=== PATIENT | female | born 1955 | race African-American/Black ===

== ENCOUNTER → 2018-05-10 | Emergency (ER) | payer MEDICARE, OTHER ==
[~2018-05-10] VITALS: Ht 165.1 cm; Wt 125.2 kg
[~2018-05-10] MED LIST: ACETAMINOPHEN325 M1 PO; ATIVAN1 MG PO; CEFEPIME HCL 2 GM VIAL IV ONE; CLOPIDOGREL75 MG PO; FLUOXETINE HCL20 MG PO; FLUTICASONE PRO16 GM; FUROSEMIDE40 MG PO; LACTULOSE20 GM/30 M PO; LISINOPRIL2.5 MG PO; LORATADINE10 MG PO; METOPROLOL TART25 MG PO; MULTIVITAMIN PO; NAMENDA10 MG PO; OLANZAPINE5 MG PO; PRAVASTATIN SOD20 MG PO; PROVENTIL HFA6.7 GM INH; SODIUM CHLORIDE 0.9% 1000ML 1,000 ML IV STA; SODIUM CHLORIDE 0.9% 1000ML 1,000 ML ONE; TRAZODONE HCL50 MG PO; VANCOMYCIN 1GM/NS 250 ML 250 ML IV ONE; ZOLOFT50 MG PO; ZYPREXA5 MG PO
--- NOTE | 2018-05-10 18:53 | Diagnostic Imaging Report ---
EXAMINATION: CHEST SINGLE (PORTABLE) INDICATION: Altered mental status. \S\AMS \[id number] \S\1821 COMPARISON: 08/24/2016 FINDINGS: AP view TUBES and LINES: None. LUNGS: Limited by body habitus and low lung volumes. Patient's chin obscures extreme apices. Mild to moderate interstitial edema. PLEURA: No significant pleural effusion or pneumothorax. HEART AND MEDIASTINUM: The cardiomediastinal silhouette is enlarged. Aorta is tortuous. BONES AND SOFT TISSUES: No acute osseous lesion. Soft tissues are unremarkable. UPPER ABDOMEN: No free air under the diaphragm. IMPRESSION: Limited as above. Enlarged cardiomediastinal silhouette and mild to moderate interstitial edema. Underlying infiltrate, especially in the right upper lung field cannot be excluded. Signed by: Dr. James Knight MD on 05/10/2018 6:50 PM
[2018-05-10 19:18] LABS: BASOPHILS % 0.3 % (0.0-1.0); EOSINOPHILS # (AUTO) 0.1 (0.0-0.4); EOSINOPHILS % 1.8 % (0.0-6.0); HEMATOCRIT 42.2 % (34.2-44.1); HEMOGLOBIN 13.6 g/dL (12.0-16.0); LYMPHOCYTES # (AUTO) 1.1 (1.0-3.2); LYMPHOCYTES % 31.8 % (18.0-39.1); MEAN CORPUSCULAR HEMOGLOBIN 30.8 pg (28-32); MEAN CORPUSCULAR HGB CONC 32.2 g/dL (31-35); MEAN CORPUSCULAR VOLUME 95.5 fL (81-99); MONOCYTES # (AUTO) 0.3 (0.2-0.8); MONOCYTES % 8.6 % (4.4-11.3); NEUTROPHILS # (AUTO) 1.9 (2.1-6.9); NEUTROPHILS % 57.2 % (38.7-80.0); PLATELET COUNT 73 x10e3/uL (140-360); RED BLOOD COUNT 4.42 x10e6/uL (3.6-5.1); RED CELL DISTRIBUTION WIDTH 14.8 % (11.7-14.4)
[2018-05-10 19:28] LABS: INR 1.19; PROTHROMBIN TIME 14.2 seconds (11.9-14.5)
[2018-05-10 19:29] LABS: PARTIAL THROMBOPLASTIN TIME 39.2 seconds (23.8-35.5)
[2018-05-10 19:36] LABS: ALANINE AMINOTRANSFERASE 42 IU/L (0-55); ALBUMIN 3.4 g/dL (3.5-5.0); ALBUMIN/GLOBULIN RATIO 0.7 (0.8-2.0); ALKALINE PHOSPHATASE 86 IU/L (40-150); ANION GAP 14.7 mmol/L (8-16); BLOOD UREA NITROGEN 25 mg/dL (7-26); BUN/CREATININE RATIO 33 (6-25); CALCIUM 10.2 mg/dL (8.4-10.2); CARBON DIOXIDE 33 mmol/L (22-29); CHLORIDE 102 mmol/L (98-107); CREATINE KINASE 70 IU/L (29-168); CREATININE, SERUM 0.76 mg/dL (0.57-1.11); EST GLOMERULAR FILTRATION RATE > 60 ML/MIN (60-); GLUCOSE 87 mg/dL (74-118); MAGNESIUM 1.8 MG/DL (1.3-2.1); POTASSIUM 3.7 mmol/L (3.5-5.1); SODIUM 146 mmol/L (136-145)
[2018-05-10 19:46] LABS: B-TYPE NATRIURETIC PEPTIDE2 90.5 pg/mL (0-100)
[2018-05-10 19:56] LABS: THYROID STIMULATING HORMONE 9.414 uIU/mL (0.350-4.940)
--- NOTE | 2018-05-10 19:59 | Diagnostic Imaging Report ---
EXAMINATION: Head CT without contrast. HISTORY:Altered mental status. COMPARISON:CT brain from 08/21/2016. TECHNIQUE: Multidetector axial images were obtained from the foramen magnum to the vertex without contrast. The images were reconstructed using brain and bone algorithms. Thin section brain images were reformatted into coronal and sagittal planes. Dose modulation, iterative reconstruction, and/or weight based adjustment of the mA/kV was utilized to reduce the radiation dose to as low as reasonably achievable. Intravenous contrast: None IMAGE QUALITY: Acceptable. FINDINGS: Skull/scalp: No lytic or blastic. lesions. No surgical changes. Parenchyma: Nonspecific bilateral frontoparietal patchy white matter hypodensity are likely related to small vessel ischemic changes. Unchanged focal hypodensity in the posterior and inferior aspect of right putamen represents an old lacunar infarct. Subtle focal hypodensity in the right frontal [place] radiata represents an age indeterminate lacunar infarct. No acute hemorrhage, mass or acute major vascular territorial infarct Arteries: No density suggestive of thrombosis. Mild atherosclerotic calcification in bilateral carotid siphon. Dural sinuses: No abnormal density suggestive of thrombosis. Ventricles: No hydrocephalus or displacement. Extra-axial spaces: No abnormal density. Brain volume: Mild generalized cerebral volume loss. Craniocervical junction: No mass, Chiari malformation, or basilar invagination. Sella: No mass. Paranasal/mastoid sinuses: Hypoplastic right maxillary sinus, status post maxillary antrostomy. IMPRESSION: Age indeterminate lacunar infarct in the right frontal livingston radiata. Chronic findings: 1. Mild generalized cerebral volume loss. 2. Moderate supratentorial white matter microvascular ischemic changes and old lacunar infarct in right putamen. Signed by: Dr. Magalie Manzo M.D. on 05/10/2018 7:55 PM
[2018-05-10 20:16] LABS: BILIRUBIN,URINE NEGATIVE (NEGATIVE); CLARITY,URINE SL CLOUDY (CLEAR); COLOR,URINE YELLOW (YELLOW); KETONES,URINE NEGATIVE (NEGATIVE); LEUKOCYTE ESTERASE ,URINE NEGATIVE (NEGATIVE); NITRITE,URINE NEGATIVE (NEGATIVE); PROTEIN,URINE DIPSTICK NEGATIVE (NEGATIVE); URINE UROBILINOGEN 0.2 mg/dL (0.2 - 1)
[2018-05-10 20:17] LABS: BACTERIA,URINE MODERATE /HPF; MUCUS,URINE MODERATE (RARE)
[2018-05-10 21:37] VITALS: BP 103/89
== END | disposition other institution (70) ==
LOC: ER 17:12
DX: R41.82 Altered mental status, unspecified (principal); R40.1 Stupor; J15.9 Unspecified bacterial pneumonia; N30.90 Cystitis, unspecified without hematuria; N39.0 Urinary tract infection, site not specified
CPT/HCPCS: 36415; 51700; 70450; 71045; 80053; 81001; 82140; 82550; 82553; 83605; 83735; 83880; 84443; 84484; 85025; 85610; 85730; 87040; 87086; 93005; 99285; J0692; J3370; J7030